=== PATIENT | male | born 1995 | race Caucasian/White ===

== ENCOUNTER → 2024-06-06 13:42 | Outpatient (CLI) | payer OTHER, SELFPAY ==
[2024-06-06 15:34] LABS: Add Manual Diff / Slide Review NO; Basophils Absolute Auto 100 /uL (0-100); Basophils Percent Auto 0.6 % (0-2); Eosinophils Absolute Auto 300 /uL (0-450); Eosinophils Percent Auto 2.7 % (2-4); Hematocrit 51.5 % (41-53); Hemoglobin 17.3 g/dL (13.5-17.5); Lymphocytes Absolute Auto 1900 /uL (1100-4500); Lymphocytes Percent Auto 19.3 % (25-40); Mean Corpuscular HGB Conc 33.5 % (30-36); Mean Corpuscular Hemoglobin 29.3 PG (26-34); Mean Corpuscular Volume 87.4 fL (80-100); Monocytes Absolute Auto 500 /uL (0-900); Monocytes Percent Auto 5.6 % (3-14); Neutrophils Absolute Auto 7000 /uL (1500-7000); Neutrophils Percent Auto 71.8 % (50-75); Platelet Count 443 X10^3/uL (150-400); Red Cell Distribution Width 14.1 % (11.6-14.8); White Blood Cell Count 9.7 X10^3/uL (4.5-11.0)
[2024-06-06 15:46] LABS: Erythrocyte Sedimentation Rate 1 MM/HR (0-15)
[2024-06-06 16:34] LABS: Alanine Aminotransferase 71 IU/L (<50); Albumin 4.2 g/dL (3.5-5.0); Albumin Globulin Ratio 1.4 (1.0-2.8); Alkaline Phosphatase 47 U/L (38-126); Aspartate Aminotransferase 77 IU/L (17-59); BUN Creatinine Ratio 5.6 (6-22); Bilirubin Total 1.5 mg/dL (0.2-1.3); Blood Urea Nitrogen 6 mg/dL (9-20); C-Reactive Protein Quant < 0.5 mg/dL (<1.0); Calcium 9.4 mg/dL (8.4-10.2); Carbon Dioxide 23 mmol/L (22-32); Chloride 102 mmol/L (98-107); Cholesterol 280 mg/dL (140-199); Estimated Glomerular Filt Rate > 60 mL/min (>60); Globulin 3.1 g/dL (1.7-4.1); Glucose 130 mg/dL (70-100); HDL Cholesterol 34 mg/dL (40-60); HEMOLYSIS < 15 (0-50); LDL Cholesterol Calculated 213 mg/dL (<100); Potassium 4.2 mmol/L (3.4-5.1); Sodium 135 mmol/L (137-145); Total Protein 7.3 g/dL (6.3-8.2); Triglycerides 167 mg/dL (35-150)
[2024-06-06 16:43] LABS: Urine N gonorrhoeae NOT DETECTED
[2024-06-06 16:59] LABS: Urine Chlamydia NOT DETECTED
[2024-06-06 17:44] LABS: TSH w/ Reflex to FT4 2.17 uIU/mL (0.47-4.68)
[2024-06-06 18:47] LABS: HIV 1 & 2 Ab/Ag 4th Gen Combo NEGATIVE (NEGATIVE); Hep C Virus Ab w/Reflex Quant REACTIVE s/c (NEGATIVE); Hepatitis B Surface Antigen NEGATIVE s/c (NEGATIVE)
[2024-06-08 05:36] LABS: Hepatitis B Core AB w/Reflex Negative (Negative)
== END ==
PROVIDERS: PCP Nurse Practitioner Family; Referring Provider Nurse Practitioner Family; Visit Provider Nurse Practitioner Family
DX: Z11.59 Encounter for screening for other viral diseases (principal); Z13.220 Encounter for screening for lipoid disorders; Z13.1 Encounter for screening for diabetes mellitus; F41.1 Generalized anxiety disorder; F32.A Depression, unspecified; Z11.3 Encounter for screening for infections with a predominantly sexual mode of transmission; L50.0 Allergic urticaria
CPT/HCPCS: 36415; 80053; 80061; 84443; 85025; 85651; 86140; 86592; 86704; 86706; 86803; 87340; 87389; 87491; 87522; 87591

== ENCOUNTER → 2024-09-09 07:13 | Outpatient (CLI) | payer OTHER, SELFPAY ==
--- NOTE | 2024-09-09 | DI.ECHO.S_ITS ---
[facility] : : [address] : : [place] : : [id number] : : Phone: [phone] Echocardiogram Report + + :Name: LINSEY HAGAN Study Date: 09/09/2024 Height: 68 in : :[facility] ReadingLocation: Weight: 215 lb : : Gender: Male BSA: 2.1 m2 : :: 1995 Age: 29 yrs BP: 166/100 mmHg: :Reason For Study: AKILA : :Ordering Physician: HANG SAEED Performed By: Pedro Main : :Referring: UNSPECIFIED : + + Interpretation Summary Hypertension. There is mild concentric left ventricular hypertrophy. The ejection fraction is estimated to be 50-55%. Diastolic parameters suggest probable normal left ventricular diastolic function and normal filling pressures. The right ventricle is normal in size and function. No significant valvular abnormalities. Pulmonary artery pressures cannot be estimated because of the lack of a measurable TR jet velocity but the IVC suggests a CVP of around 3 mmHg. Procedure: A two-dimensional transthoracic echocardiogram with color flow and Doppler was performed. The study quality was technically good. There is no prior echocardiogram noted for this patient. The patient was in normal sinus rhythm during the exam. Left Ventricle: The left ventricle is normal in size. There is mild concentric left ventricular hypertrophy. There is no ventricular septal defect visualized. The ejection fraction is estimated to be 50-55%. There are no focal wall motion abnormalities. Diastolic parameters suggest probable normal left ventricular diastolic function and normal filling pressures. Right Ventricle: The right ventricle is normal in size and function. Atria: The left atrial size is normal. Right atrial size is normal. There is no Doppler evidence for an interatrial shunt. Mitral Valve: The mitral valve leaflets appear mildly thickened, but open well. There is trace mitral regurgitation. Aortic Valve: The aortic valve is trileaflet. The aortic valve opens well. There is no aortic valve stenosis. No aortic regurgitation is present. Tricuspid Valve: The tricuspid valve leaflets are thin and pliable. No tricuspid regurgitation. Pulmonary artery pressures cannot be estimated because of the lack of a measurable TR jet velocity but the IVC suggests a CVP of around 3 mmHg. Pulmonic Valve: The pulmonic valve leaflets are thin and pliable; valve motion is normal. There is no pulmonic valvular regurgitation. Great Vessels: The aortic root is normal size. The dimensions of the ascending aorta are normal. The pulmonary artery is normal size. The IVC is of normal diameter and collapses greater than 50% with a sniff. This suggests a low right atrial pressure of 3 mm Hg. Pericardium/ Pleura There is no pericardial effusion. There is no pleural effusion. MMode/2D Measurements & Calculations LVIDd: 5.6 cm LVOT diam: 2.3 cm LVIDs: 4.0 cm Ao root diam: 3.3 cm FS: 29.4 % asc Aorta Diam: 3.4 cm EPSS: 0.66 cm Ao Arch Diam (Prox Trans): 1.6 cm IVSd: 1.1 cm LVPWd: 1.2 cm LV alaniz. diameter/BSA (cm/m^2): 2.7 LV sys. diameter/BSA (cm/m^2): 1.9 LA A2 area: 20.0 cm2 RA long axis: 4.5 cm LA A4 area: 17.9 cm2 RA area: 15.9 cm2 LA length (vol): 5.2 cm RA vol: 47.3 ml LA vol: 58.3 ml RA : 22.4 ml/m2 LA vol index: 27.7 ml/m2 IVC diam: 1.4 cm RVD1 (basal): 3.7 cm RVD2 (mid): 2.6 cm TAPSE: 1.9 cm Doppler Measurements & Calculations Ao V2 max: 127.3 cm/sec LVOT Max Jacob: 122.1 cm/sec Ao V2 mean: 96.7 cm/sec LV V1 max P.0 mmHg Ao max P.5 mmHg LV V1 VTI: 21.4 cm Ao mean P.0 mmHg TAVARES(I,D): 3.0 cm2 Ao V2 VTI: 28.4 cm TAVARES(V,D): 3.8 cm2 sev ratio: 0.75 TAVARES indexed to BSA (cm^2/m^2): 1.4 MV E max jacob: 68.5 cm/sec PA V2 max: 74.4 cm/sec MV A max jacob: 55.9 cm/sec PA V2 mean: 47.0 cm/sec MV E/A: 1.2 PA mean P.1 mmHg Med Peak E' Jacob: 7.3 cm/sec PA pr(Accel): 19.1 mmHg E/E' med: 9.4 Lat Peak E' Jacob: 7.1 cm/sec E/E' lat: 9.7 E/e' average: 9.6 MV dec time: 0.14 sec SVLVOT): 85.7 ml Reading Physician:08:35 AM
--- NOTE | 2024-09-09 08:11 | EKG_ITS ---
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
== END ==
PROVIDERS: PCP Nurse Practitioner Family; Referring Provider Nurse Practitioner Family; Visit Provider Nurse Practitioner Family
DX: G47.33 Obstructive sleep apnea (adult) (pediatric) (principal)
CPT/HCPCS: 93005; 93306

== ENCOUNTER → 2024-12-12 14:33 | Outpatient (CLI) | payer OTHER, SELFPAY ==
[2024-12-12 16:16] LABS: Alanine Aminotransferase 91 IU/L (<50); Albumin 4.7 g/dL (3.5-5.0); Albumin Globulin Ratio 1.3 (1.0-2.8); Alkaline Phosphatase 49 U/L (38-126); Aspartate Aminotransferase 106 IU/L (17-59); BUN Creatinine Ratio 12.2 (6-22); Bilirubin Total 1.7 mg/dL (0.2-1.3); Blood Urea Nitrogen 12 mg/dL (9-20); Calcium 10.1 mg/dL (8.4-10.2); Carbon Dioxide 25 mmol/L (22-32); Chloride 101 mmol/L (98-107); Cholesterol 240 mg/dL (140-199); Estimated Glomerular Filt Rate > 60 mL/min (>60); Globulin 3.7 g/dL (1.7-4.1); Glucose 99 mg/dL (70-100); HDL Cholesterol 54 mg/dL (40-60); HEMOLYSIS 50 (0-50); LDL Cholesterol Calculated 172 mg/dL (<100); Potassium 4.6 mmol/L (3.4-5.1); Sodium 138 mmol/L (137-145); Total Protein 8.4 g/dL (6.3-8.2); Triglycerides 71 mg/dL (35-150)
[2024-12-12 16:47] LABS: TSH w/ Reflex to FT4 4.31 uIU/mL (0.47-4.68)
== END ==
PROVIDERS: PCP Family Medicine; Referring Provider Family Medicine; Visit Provider Family Medicine
DX: R07.9 Chest pain, unspecified (principal); Z82.49 Family history of ischemic heart disease and other diseases of the circulatory system; E78.5 Hyperlipidemia, unspecified; I10 Essential (primary) hypertension; F19.90 Other psychoactive substance use, unspecified, uncomplicated
CPT/HCPCS: 80053; 80061; 80307; 84443

== ENCOUNTER 2025-04-09 20:31 | Emergency (ER) | payer OTHER, SELFPAY ==
[2025-04-09] VITALS (7 sets, daily range): BP systolic 120–145; BP diastolic 63–90; PULSE 96–124; RESP 12–22; TEMP 38.2; O2SAT 93–97; BMI 31.1
--- NOTE | 2025-04-09 20:52 | EKG_ITS ---
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
--- NOTE | 2025-04-09 20:56 | DI.CT.S_ITS ---
PROCEDURE: CT ABDOMEN PELVIS W CON INDICATIONS: fever TECHNIQUE: After the administration of intravenous contrast, axial sections acquired from the lung bases to the pubic symphysis. Coronal and sagittal reformats were performed. For radiation dose reduction, the following was used: automated exposure control, adjustment of mA and/or kV according to patient size. COMPARISON: [facility], CT, CT ANGIO CHEST PE PROTOCOL, 04/09/2025, 22:22. FINDINGS: Image quality: Diagnostic. Lower Chest: No significant findings. ABDOMEN: Liver: No solid mass. Liver measures 20.2 cm. Gallbladder: No radiopaque gallstones or wall thickening. Biliary ducts: No biliary dilation. Pancreas: No ductal dilation. Spleen: Spleen measures 14.5 cm. Adrenal Glands: No adrenal nodules. Kidneys and Ureters: No hydronephrosis. No solid mass. No complex renal cystic lesion which requires follow up. Stomach and Bowel: Normal colonic caliber, without significant wall thickening. Scattered diverticula inflammatory change. Peritoneum: No abnormal intraperitoneal fluid. No free air. Ventral Wall: Trace fat containing ventral hernia. Abdominal Nodes: No retroperitoneal or mesenteric adenopathy by size criteria. Vessels: Aorta and inferior vena cava are normal in size. PELVIS: Pelvic Organs: Unremarkable. Bladder: No bladder wall thickening, accounting for underdistention. Pelvic Nodes: No enlarged lymph nodes. Miscellaneous: No inguinal hernias are seen. Bones: No aggressive osseous abnormality. IMPRESSION: Diverticulosis. Hepatic steatosis. Dictated by: Rivka Churchill M.D. on 04/09/2025 at 22:51 Approved by: Rivka Churchill M.D. on 04/09/2025 at 22:53
[2025-04-09 21:26] LABS: Appearance Urine UA CLEAR; Bilirubin Urine UA 1+ (NEGATIVE); Color Urine UA YELLOW; Glucose Urine UA NEGATIVE (Negative); Ketones Urine UA TRACE (NEGATIVE); Leukocyte Esterase Urine UA NEGATIVE (NEGATIVE); Nitrite Urine UA NEGATIVE (Negative); Occult Blood Urine UA NEGATIVE (Negative); Protein Urine UA 1+ (Negative); Specific Gravity Urine UA 1.020 (1.000-1.035); Urobilinogen Urine UA 4.0 E.U./dL (0.2); pH Urine UA 7.5 (4.5-8.0)
[2025-04-09 21:31] LABS: INR 1.1 (0.9-1.3); Prothrombin Time 12.7 SECONDS (9.4-12.5)
[2025-04-09 21:32] LABS: Ur Specific Gravity Normal (Normal); Urine Tetrahydrocannabinol Negative (Negative)
[2025-04-09 21:33] LABS: UR Morphine/Opiate cutoff 300 Negative (Negative); Urine MDMA Negative (Negative); Urine Methamphetamines Negative (Negative); Urine Tricyclic Antidepressant Negative (Negative)
[2025-04-09 21:34] LABS: PTT Partial Thromboplastin Tim 35 SECONDS (25.1-36.5)
[2025-04-09] MEDS: SODIUM CHLORIDE 0.9% 2,789.58 ML 929.86 ML IV (21:36)
[2025-04-09 21:41] LABS: Ictotest Urine Negative (Negative)
[2025-04-09 21:42] LABS: Acetaminophen < 10 ug/mL (10-30); Ethanol (ETOH) < 10 mg/dL (<10); Lactate (Lactic Acid) 1.0 mmol/L (0.7-2.1); Salicylate < 1.0 mg/dL (<20)
[2025-04-09 21:42] LABS: Culture Indicated Urine Cult Not Indicated
[2025-04-09 21:43] LABS: Alanine Aminotransferase 54 IU/L (<50); Albumin 3.7 g/dL (3.5-5.0); Albumin Globulin Ratio 1.1 (1.0-2.8); Alkaline Phosphatase 70 U/L (38-126); Blood Urea Nitrogen 12 mg/dL (9-20); Calcium 8.5 mg/dL (8.4-10.2); Carbon Dioxide 26 mmol/L (22-32); Chloride 96 mmol/L (98-107); Estimated Glomerular Filt Rate > 60 mL/min (>60); Globulin 3.5 g/dL (1.7-4.1); Glucose 134 mg/dL (70-99); HEMOLYSIS 31 (0-50); Lipase 40 U/L (23-300); Potassium 4.0 mmol/L (3.4-5.1); Sodium 129 mmol/L (137-145); Total Protein 7.2 g/dL (6.3-8.2)
[2025-04-09 21:52] LABS: Hematocrit 55.9 % (41-53); Hemoglobin 18.8 g/dL (13.5-17.5); Mean Corpuscular HGB Conc 33.6 % (30-36); Mean Corpuscular Hemoglobin 28.6 PG (26-34); Mean Corpuscular Volume 85.1 fL (80-100); Platelet Count 170 X10^3/uL (150-400)
[2025-04-09 21:55] LABS: Add Manual Diff / Slide Review YES
[2025-04-09 21:59] LABS: Procalcitonin 0.347 ng/mL (<0.5)
[2025-04-09 22:02] LABS: Atypical Lymphocytes Percent 2.0 %; Band Neutrophils Percent 8.0 % (3-7); Basophils Percent Manual 1.0 % (0-1); Eosinophils Percent Manual 4.0 % (2-4); Lymphocytes Percent Manual 39.0 % (25-45); Monocytes Percent Manual 1.0 % (2-11); Neutrophils Absolute Manual 3816 /uL (3000-5900); RBC Morphology Normal Morphology; Segmented Neutrophils Percent 45.0 % (38-70); Total Cells Counted 100
[2025-04-09 22:13] LABS: Thyroid Stimulating Hormone 4.16 uIU/mL (0.47-4.68)
--- NOTE | 2025-04-09 22:17 | DI.CT.S_ITS ---
PROCEDURE: CT ANGIO CHEST PE PROTOCOL INDICATIONS: dimer TECHNIQUE: After the administration of intravenous contrast, 2 mm thick sections acquired from the pulmonary apices to the posterior costophrenic angles. 3-dimensional maximum intensity projection (MIP) coronal and sagittal reformats were then acquired through the thorax. For radiation dose reduction, the following was used: automated exposure control, adjustment of mA and/or kV according to patient size. COMPARISON: None. FINDINGS: Image quality: Diagnostic. Pulmonary arteries: Pulmonary arteries are normal in size, and demonstrate no intraluminal filling defects to suggest central pulmonary embolism. Lower Neck: No enlarged lymph nodes. Thyroid: No thyroid nodules which require sonographic follow up, per consensus guidelines. Axillae: No enlarged lymph nodes. Chest Wall: Unremarkable. Bones: Unremarkable. Lungs and Pleura: No pneumothorax or pleural effusions. No consolidation or suspicious nodules. Heart: Heart size is normal. No pericardial effusion. Thoracic Vessels: No aortic aneurysm. Mediastinum and Naomy: No enlarged lymph nodes. Esophagus: No wall thickening. Mild hiatal hernia. Upper Abdomen: Visualized upper abdomen solid organs and bowel loops appear normal. IMPRESSION: No pulmonary embolus. No acute cardiopulmonary process. Dictated by: Rivka Churchill M.D. on 04/09/2025 at 22:53 Approved by: Rivka Churchill M.D. on 04/09/2025 at 22:54
--- NOTE | 2025-04-09 22:17 | DI.US.S_ITS ---
PROCEDURE: US PERIPH VENOUS LOW EXTREM BI INDICATIONS: RO DVT TECHNIQUE: Real-time imaging, as well as color and pulse Doppler interrogation, were performed of the deep veins of both legs from the inguinal ligament to the popliteal fossa, with documentation of the visualized calf veins. COMPARISON: None. FINDINGS: Right: The common femoral, femoral, popliteal, and the visualized calf veins are normally compressible, and free of intraluminal thrombus. Color and pulse Doppler demonstrate normal phasic intravascular flow. There is normal augmentation response to distal compression maneuver. Left: The common femoral, femoral, popliteal, and the visualized calf veins are normally compressible, and free of intraluminal thrombus. Color and pulse Doppler demonstrate normal phasic intravascular flow. There is normal augmentation response to distal compression maneuver. IMPRESSION: No findings of deep venous thrombosis in either lower extremity. Dictated by: Rivka Churchill M.D. on 04/09/2025 at 23:43 Approved by: Rivka Churchill M.D. on 04/09/2025 at 23:43
[2025-04-10] VITALS: BP 131/65; PULSE 94; RESP 24; O2SAT 93
[2025-04-10 00:37] LABS: Troponin I < 0.012 ng/mL (0.01-0.034)
[2025-04-10 00:59] LABS: Troponin I < 0.012 ng/mL (0.01-0.034)
[2025-04-10 00:59] LABS: Coronavirus NL 63 Not Detected (Not Detect); SARS- CoV-2 Not Detected (Not Detecte)
[2025-04-10 01:15] VITALS: BP 125/72; PULSE 102; RESP 18; TEMP 38; O2SAT 96
[2025-04-10 01:26] VITALS: TEMP 38
[2025-04-10] MEDS: ACETAMINOPHEN 325 MG TABLET 975 MG PO (01:26)
[2025-04-10 02:16] VITALS: BP 138/66; PULSE 78; RESP 16; TEMP 37; O2SAT 99
--- NOTE | 2025-04-10 02:18 | PC.NURSE ---
Pt is now afebrile, would like to go home.
[2025-04-10 02:32] VITALS: TEMP 37
--- NOTE | 2025-04-10 07:16 | ED_ITS ---
HPI - Fever General Chief Complaint: Fever Stated Complaint: HBP, Fever, Chest pain, Brain Zaps Time Seen by Provider: 04/09/25 20:54 Source: patient Mode of arrival: Ambulatory History of Present Illness HPI Narrative: Pleasant 30-year-old man comes to the ER because of fever, and feeling brain zaps as he has recently changed his psychoactive medication on his own. He denies any cough, nausea, vomiting, abdominal pain, rash, neck pain, neck stiffness. Related Data Home Medications ?Medication ?Instructions ?Recorded ?Confirmed lisdexamfetamine 20 mg capsule 20 mg PO QAM 04/13/25 0 04/13/25 Previous Rx's ?Medication ?Instructions ?Recorded venlafaxine 75 mg tablet 75 mg PO TID #270 tabs 04/02 lisinopril 10 mg tablet 30 mg (3 x 10 mg) PO DAILY # 90 tabs 04/13/25 buprenorphine 8 mg-naloxone 2 mg 1 film buccal DAILY # 30 ea 05/15/25 sublingual film (Suboxone) Allergies Allergy/AdvReac Type Severity Reaction Status Date / Time No Known Drug Allergies Allergy Verified 04/13/25 16:13 Patient History Smoking Status: Current every day smoker Alcohol type: hard liquor Exam Initial Vital Signs Initial Vital Signs: Vital Signs Temperature 100.7 F H 04/09/25 20:43 Pulse Rate 124 H 04/09/25 20:43 Respiratory Rate 18 04/09/25 20:43 Blood Pressure 145/90 H 04/09/25 20:43 Pulse Oximetry 93 04/09/25 20:43 Oxygen Delivery Method Room Air 04/09/25 20:43 Const General: No acute distress, No in distress, ill appearing and No lethargic Nutritional Appearance: average body habitus [facility] Head: normal to inspection, normocephalic and atraumatic Ears: hearing grossly normal bilaterally Nose: external nose normal Face and sinus: normal facial exam Mouth: oral mucosae normal Throat: posterior oropharynx normal Eyes General: Yes appearance normal, both eyes and all related structures Periorbital: periorbital findings normal Conjunctivae: conjunctivae normal Pupils: PERRL EOM: EOM intact bilaterally Neck Neck: normal visual inspection, full ROM, no meningeal signs, No positive Brudzinski's sign and No positive Kernig's sign Chest Chest: normal inspection of the chest Resp Effort & Inspection: normal respiratory effort Auscultation: clear to auscultation bilaterally Cardio Palpation: normal PMI Rate: regular rate Rhythm: regular rhythm Heart Sounds: S1 normal and S2 normal GI Inspection: normal to inspection Palpation: soft and No tender Auscultation: normal bowel sounds General: No CVA tenderness Skin General: no rashes or lesions noted Neuro General: patient alert, patient awake, patient oriented x3, no meningeal signs, no focal motor deficits and CN's II-XI intact bilaterally Cognition: normal cognition Speech: speech normal Gait: normal gait Motor: muscle tone normal throughout Sensory Exam: no sensory deficits noted Course Course Course Narrative: fever responded to tylenol neg procal/lactate neg imaging, no source identified vitals normalized no hx of etoH withdrawal sz Orders Ordered: Discontinued Medications Acetaminophen (Acetaminophen 325 Mg Tablet) 975 mg PO NOW ONE Stop: 04/10/25 01:22 Last Admin: 04/10/25 01:26 Dose: 975 mg Documented By: Diazepam (Diazepam 10 Mg/2 Ml Syringe) 10 mg IV NOW ONE Stop: 04/09/25 20:57 Last Admin: 04/09/25 22:38 Dose: Not Given Documented By: MAYA Sodium Chloride (Normal Saline 0.9%) 1,000 mls @ 1,000 mls/hr IV BOLUS ONE Stop: 04/09/25 21:51 Last Admin: 04/09/25 21:53 Dose: Not Given Documented By: MAYA Sodium Chloride (Normal Saline 0.9%) 2,789.58 mls @ 929.86 mls/hr 30 ml/kg infuse over 3 hr (2789.58 ml) IV NOW ONE Stop: 04/09/25 23:53 Last Infusion: 04/10/25 01:19 Dose: Infused Documented By: Infusion: 04/09/25 22:39 Dose: 929.86 mls/hr Documented By: Infusion: 04/09/25 22:38 Dose: 0 mls/hr Documented By: Admin: 04/09/25 21:36 Dose: 929.86 mls/hr Documented By: MAYA Ondansetron HCl (Ondansetron 4 Mg/2 Ml Inj) 4 mg IV NOW PRN PRN Reason: Nausea And Vomiting Ondansetron HCl (Ondansetron 4 Mg Odt) 4 mg PO NOW PRN PRN Reason: Nausea And Vomiting Vital Signs Vital signs: Vital Signs - 8 hr 04/09/25 23:30 04/09/25 23:31 04/09/25 23:31 Temperature Pulse Rate 98 H 96 H Respiratory Rate 14 16 Blood Pressure 120/63 Pulse Oximetry 96 96 Oxygen Delivery Method Room Air 04/10/25 00:00 04/10/25 00:00 04/10/25 01:15 Temperature 100.4 F H Pulse Rate 94 H 102 H Respiratory Rate 24 18 Blood Pressure 131/65 125/72 Pulse Oximetry 93 96 Oxygen Delivery Method Room Air Room Air 04/10/25 01:26 04/10/25 02:16 04/10/25 02:32 Temperature 100.4 F H 98.6 F 98.6 F Pulse Rate 78 Respiratory Rate 16 Blood Pressure 138/66 Pulse Oximetry 99 Oxygen Delivery Method Room Air MDM - Fever Differential Diagnosis Differential diagnosis: Likely cellulitis, fever of unknown origin, gastroenteritis, community acquired pneumonia, pyelonephritis, viral infection, sepsis and influenza Lab Data 04/09/25 21:10 04/09/25 21:10 Labs: Lab Results 04/09/25 04/09/25 04/09/25 Range/Units 21:07 21:07 21:10 WBC 7.2 (4.5-11.0) X10^3/uL RBC 6.56 H (4.5-5.9) X10^6/uL Hgb 18.8 H (13.5-17.5) g/dL Hct 55.9 H (41-53) % MCV 85.1 (80-100) fL MCH 28.6 (26-34) PG MCHC 33.6 (30-36) % RDW 15.8 H (11.6-14.8) % Plt Count 170 (150-400) X10^3/uL Neut % (Auto) Not Reportable Lymph % (Auto) Not Reportable [place] % (Auto) Not Reportable Eos % (Auto) Not Reportable Baso % (Auto) Not Reportable Lymph # (Auto) Not Reportable [place] # (Auto) Not Reportable Baso # (Auto) Not Reportable Total Counted 100 Seg Neutrophils % 45.0 (38-70) % Band Neutrophils % 8.0 H (3-7) % Lymphocytes % (Manual) 39.0 (25-45) % Atypical Lymphs % 2.0 H ( - 0) % Monocytes % (Manual) 1.0 L (2-11) % Eosinophils % (Manual) 4.0 (2-4) % Basophils % (Manual) 1.0 (0-1) % Neutrophils # (Manual) 3816 (5469-7013) /uL Reactive Lymphocytes 2+ H RBC Morphology Normal morphology PT 12.7 H (9.4-12.5) SECONDS INR 1.1 (0.9-1.3) APTT 35 (25.1-36.5) SECONDS D-Dimer 3286 H (<500) ng/ml Sodium 129 L (137-145) mmol/L Potassium 4.0 (3.4-5.1) mmol/L Chloride 96 L (98-107) mmol/L Carbon Dioxide 26 (22-32) mmol/L BUN 12 (9-20) mg/dL Creatinine 0.87 (0.66-1.25) mg/dL Estimated GFR > 60 (>60) mL/min BUN/Creatinine Ratio 13.8 (6-22) Glucose 134 H (70-99) mg/dL Lactate 1.0 (0.7-2.1) mmol/L Calcium 8.5 (8.4-10.2) mg/dL Total Bilirubin 1.0 (0.2-1.3) mg/dL AST 59 (17-59) IU/L ALT 54 H (<50) IU/L Alkaline Phosphatase 70 (38-126) U/L Troponin I < 0.012 (0.01-0.034) ng/mL Total Protein 7.2 (6.3-8.2) g/dL Albumin 3.7 (3.5-5.0) g/dL Globulin 3.5 (1.7-4.1) g/dL Albumin/Globulin Ratio 1.1 (1.0-2.8) Lipase 40 (23-300) U/L Procalcitonin 0.347 (<0.5) ng/mL TSH 4.16 (0.47-4.68) uIU/mL Urine Color Yellow Urine Appearance Clear Urine pH 7.5 Normal (4.5-8.0) Ur Specific [place] 1.020 (1.000-1.035) Urine Protein 1+ H (Negative) Urine Glucose (UA) Negative (Negative) g/dL Urine Ketones Trace H (NEGATIVE) Urine Occult Blood Negative (Negative) Urine Nitrate Negative (Negative) Urine Bilirubin 1+ H (NEGATIVE) Ur Bilirubin Confirm Negative (Negative) Urine Urobilinogen 4.0 H (0.2) E.U./dL Ur Leukocyte Esterase Negative (NEGATIVE) Urine RBC 1-5/hpf (0-5/HPF) Urine WBC None seen (0-5/HPF) Ur Squamous Epith Cells 1-5 /hpf (0-5/HPF) Amorphous Sediment 1+ Urine Bacteria Occasional (0-1) (None) Urine Mucus 1+ H (Negative) Ur Culture Indicated? Cult not indicated Vol Urine Centrifuged 10ml (spun) Salicylates < 1.0 (<20) mg/dL U Opiates 300ng/mL cut Negative (Negative) Ur Oxycodone Screen Negative (Negative) Urine Methadone Screen Negative (Negative) Acetaminophen < 10 (10-30) ug/mL Ur Barbiturates Screen Negative (Negative) U Tricyclic Antidepress Negative (Negative) Ur Phencyclidine Scrn Negative (Negative) Ur Amphetamines Screen Positive H (Negative) U Methamphetamines Scrn Negative (Negative) Ur MDMA Scrn (Ecstasy) Negative (Negative) U Benzodiazepines Scrn Negative (Negative) Urine Cocaine Screen Negative (Negative) U Marijuana (THC) Screen Negative (Negative) Urine Specific [place] Normal (Normal) Ethyl Alcohol < 10 (<10) mg/dL Ur Creatinine Normal (Normal) Chlamy pneumoniae PCR (Not Detect) Adenovirus (PCR) (Not Detect) B. pertussis DNA (PCR) (Not Detect) B.parapertussis DNA PCR (Not Detecte) Coronavirus OC43 (PCR) (Not Detect) Coronavirus HKU1 (PCR) (Not Detect) Coronavirus 229E (PCR) (Not Detect) SARS-CoV-2 (PCR) (Not Detecte) Coronavirus NL63 (PCR) (Not Detect) Human Metapneumovir PCR (Not Detect) Influenza Type A (PCR) (Not Detect) Influenza Type B (PCR) (Not Detect) M. pneumoniae (PCR) (Not Detect) Parainfluenza 1 (PCR) (Not Detect) Parainfluenza 2 (PCR) (Not Detect) Parainfluenza 3 (PCR) (Not Detect) Parainfluenza 4 (PCR) (Not Detect) RSV (PCR) (Not Detect) Entero/Rhino (PCR) (Not Detect) 04/09/25 04/10/25 Range/Units 23:52 00:15 WBC (4.5-11.0) X10^3/uL RBC (4.5-5.9) X10^6/uL Hgb (13.5-17.5) g/dL Hct (41-53) % MCV (80-100) fL MCH (26-34) PG MCHC (30-36) % RDW (11.6-14.8) % Plt Count (150-400) X10^3/uL Neut % (Auto) Lymph % (Auto) [place] % (Auto) Eos % (Auto) Baso % (Auto) Lymph # (Auto) [place] # (Auto) Baso # (Auto) Total Counted Seg Neutrophils % (38-70) % Band Neutrophils % (3-7) % Lymphocytes % (Manual) (25-45) % Atypical Lymphs % ( - 0) % Monocytes % (Manual) (2-11) % Eosinophils % (Manual) (2-4) % Basophils % (Manual) (0-1) % Neutrophils # (Manual) (8800-1589) /uL Reactive Lymphocytes RBC Morphology PT (9.4-12.5) SECONDS INR (0.9-1.3) APTT (25.1-36.5) SECONDS D-Dimer (<500) ng/ml Sodium (137-145) mmol/L Potassium (3.4-5.1) mmol/L Chloride (98-107) mmol/L Carbon Dioxide (22-32) mmol/L BUN (9-20) mg/dL Creatinine (0.66-1.25) mg/dL Estimated GFR (>60) mL/min BUN/Creatinine Ratio (6-22) Glucose (70-99) mg/dL Lactate (0.7-2.1) mmol/L Calcium (8.4-10.2) mg/dL Total Bilirubin (0.2-1.3) mg/dL AST (17-59) IU/L ALT (<50) IU/L Alkaline Phosphatase (38-126) U/L Troponin I < 0.012 (0.01-0.034) ng/mL Total Protein (6.3-8.2) g/dL Albumin (3.5-5.0) g/dL Globulin (1.7-4.1) g/dL Albumin/Globulin Ratio (1.0-2.8) Lipase (23-300) U/L Procalcitonin (<0.5) ng/mL TSH (0.47-4.68) uIU/mL Urine Color Urine Appearance Urine pH (4.5-8.0) Ur Specific [place] (1.000-1.035) Urine Protein (Negative) Urine Glucose (UA) (Negative) g/dL Urine Ketones (NEGATIVE) Urine Occult Blood (Negative) Urine Nitrate (Negative) Urine Bilirubin (NEGATIVE) Ur Bilirubin Confirm (Negative) Urine Urobilinogen (0.2) E.U./dL Ur Leukocyte Esterase (NEGATIVE) Urine RBC (0-5/HPF) Urine WBC (0-5/HPF) Ur Squamous Epith Cells (0-5/HPF) Amorphous Sediment Urine Bacteria (None) Urine Mucus (Negative) Ur Culture Indicated? Vol Urine Centrifuged Salicylates (<20) mg/dL U Opiates 300ng/mL cut (Negative) Ur Oxycodone Screen (Negative) Urine Methadone Screen (Negative) Acetaminophen (10-30) ug/mL Ur Barbiturates Screen (Negative) U Tricyclic Antidepress (Negative) Ur Phencyclidine Scrn (Negative) Ur Amphetamines Screen (Negative) U Methamphetamines Scrn (Negative) Ur MDMA Scrn (Ecstasy) (Negative) U Benzodiazepines Scrn (Negative) Urine Cocaine Screen (Negative) U Marijuana (THC) Screen (Negative) Urine Specific [place] (Normal) Ethyl Alcohol (<10) mg/dL Ur Creatinine (Normal) Chlamy pneumoniae PCR Not detected (Not Detect) Adenovirus (PCR) Not detected (Not Detect) B. pertussis DNA (PCR) Not detected (Not Detect) B.parapertussis DNA PCR Not detected (Not Detecte) Coronavirus OC43 (PCR) Not detected (Not Detect) Coronavirus HKU1 (PCR) Not detected (Not Detect) Coronavirus 229E (PCR) Not detected (Not Detect) SARS-CoV-2 (PCR) Not detected (Not Detecte) Coronavirus NL63 (PCR) Not detected (Not Detect) Human Metapneumovir PCR Not detected (Not Detect) Influenza Type A (PCR) Not detected (Not Detect) Influenza Type B (PCR) Not detected (Not Detect) M. pneumoniae (PCR) Not detected (Not Detect) Parainfluenza 1 (PCR) Not detected (Not Detect) Parainfluenza 2 (PCR) Not detected (Not Detect) Parainfluenza 3 (PCR) Not detected (Not Detect) Parainfluenza 4 (PCR) Not detected (Not Detect) RSV (PCR) Not detected (Not Detect) Entero/Rhino (PCR) Not detected (Not Detect) Urine Dip Bedside Urine Glucose Negative Bedside Urine Bilirubin + 1 Bedside Urine Ketone +/- 5 Urine Specific [place] 1.015 Bedside Urine Occult Blood - Negative Bedside Urine pH 7.0 Bedside Urine Protein + 30 Bedside Urine Urobilinogen 1+ 2mg Bedside Urine Nitrite - Negative Bedside Urine Leukocytes - Negative Esterase ECG Data Interpretation: Sinus tachycardia. Rate 124. Otherwise normal EKG. MDM Narrative Medical decision making narrative: Patient seen and examined by myself. He did have a mild fever of unknown origin. Thorough workup was done in the ER and no source was found. Also his procalcitonin was within normal limits so he was not started on any antibiotics at this time. I advised him to return to the hospital if his symptoms became worse or persistent. Otherwise, I advised him to follow up with his PCP as soon as possible. He was in agreement with this plan. Discharge Plan Departure Patient Disposition: Home Clinical Impression: Fever of unknown origin Instructions: DI for Fever (Symptom) -- Adult Activity Restrictions/Additional Instructions: If you continue to have fevers tomorrow or if you start to have chest pain again then please return to the ER immediately for further evaluation. Please return to the ER as well if there is any other concerns or change or worsening in your condition. Otherwise, please follow up with your primary care provider as soon as possible. Prescriptions: No Action lisdexamfetamine 20 mg capsule 20 mg PO QAM lisinopril 10 mg tablet 30 mg PO DAILY Qty: 90 2RF venlafaxine 75 mg tablet 75 mg PO TID Qty: 270 0RF Rx Instructions: [employer] buprenorphine-naloxone [Suboxone] 8-2 mg film 1 film buccal DAILY Qty: 30 0RF Referrals: Sandra Díaz MD [Primary Care Provider, Family Practice] - As soon as possible Stand Alone Forms: Patient Portal/API
== END 2025-04-10 02:42 | disposition home or self-care (01) ==
PROVIDERS: Emergency Provider Emergency Medicine; PCP Family Medicine
DX: R50.9 Fever, unspecified (principal); R07.9 Chest pain, unspecified
CPT/HCPCS: 36415; 71275; 74177; 80053; 80305; 80320; 80329; 81001; 81003; 83605; 83690; 84145; 84443; 84484; 85007; 85025; 85379; 85610; 85730; 87040; 87633; 93005; 93970; 96360; 96361; 99284; G0480; J3360; Q9967

== ENCOUNTER 2025-08-25 22:52 | Emergency (ER) | payer OTHER, SELFPAY ==
[2025-08-25 22:59] VITALS: BP 145/91; PULSE 92; RESP 18; TEMP 36.6; O2SAT 96; BMI 30.4
--- NOTE | 2025-08-25 23:04 | DI.RAD.S_ITS ---
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 COMPARISON: None. FINDINGS: Bones: No fractures or dislocations. Carpal bones are normally aligned. No suspicious bony lesions. Soft tissues: Soft tissue laceration between the thumb and index finger. No radiopaque foreign body. IMPRESSION: Soft tissue laceration between the thumb and index finger. No radiopaque foreign body. No acute bony abnormality. Dictated by: Tracy Edwards M.D. on 08/26/2025 at 0:11 Approved by: Tracy Edwards M.D. on 08/26/2025 at 0:12
--- NOTE | 2025-08-25 23:05 | ED_ITS ---
HPI - Extremity Injury (Upper) General Chief Complaint: Wound/Laceration Stated Complaint: lt hand injury ~1 inch with screwdriver Time Seen by Provider: 08/25/25 22:59 History of Present Illness HPI narrative: Patient 30-year-old male history of hypertension, substance use disorder on S uboxone, ADHD presenting today with left hand injury. He reports that he had a screwdriver he is trying to prior off something from the vacuum when it slipped and went down by his some. She had otr van cdl truck driver's out. He reports it being sore but has full range of motion. No excessive bleeding. He is not sure when his last tetanus was. Related Data Previous Rx's ?Medication ?Instructions ?Recorded buprenorphine 8 mg-naloxone 2 mg 1 film buccal DAILY # 30 ea 07/28/25 sublingual film (Suboxone) lisdexamfetamine 30 mg capsule 30 mg PO DAILY #30 caps 08/11/25 (Vyvanse) lisinopril 40 mg tablet 40 mg PO DAILY #90 tabs 07/25 05/18 venlafaxine 75 mg capsule,extended 75 mg PO BID #180 c aps 08/14/25 release 24 hr cephalexin 500 mg capsule 500 mg PO TID #21 caps 08/26 Allergies Allergy/AdvReac Type Severity Reaction Status Date / Time No Known Drug Allergies Allergy Verified 04/13/25 16:13 Patient History Social History Smoking Status: Current some day smoker Alcohol type: hard liquor Exam Initial Vital Signs Initial Vital Signs: Vital Signs Temperature 97.9 F 08/25/25 22:59 Pulse Rate 92 H 08/25/25 22:59 Respiratory Rate 18 08/25/25 22:59 Blood Pressure 145/91 H 08/25/25 22:59 Pulse Oximetry 96 08/25/25 22:59 Oxygen Delivery Method Room Air 08/25/25 22:59 GENERAL: Well-appearing, well-nourished and in no acute distress. CARDIOVASCULAR: peripheral pulses in tact, cap refill <2 sec RESPIRATORY: No respiratory distress, speaks in full sentences without difficulty EXTREMITIES: Normal range of motion, no clubbing or edema. Neurovascularly intact Left hand puncture wound noted between some and index finger he has full range of motion able to make an okay sign with some in pinky able to flex and extend thumb he is slightly tender in his thenar eminence. Bleeding controlled., cap refill less than 2 seconds puncture wound is less than 0.5 cm NEUROLOGICAL: Cranial nerves II through XII grossly intact. Normal gait and speech. SKIN: Warm, dry, no petechiae, no rashes or lesions. Course Orders Ordered: ED Orders 08/25/25 23:04 XR hand LT min 3V Stat Discontinued Medications Diphtheria/Tetanus/Acell Pertussis (Tet,Diph,Pertuss(Acell),Vac/Pf 0.5 Ml Syringe) 0.5 ml IM .ONCE ONE Stop: 08/25/25 23:05 Last Admin: 08/25/25 23:10 Dose: 0.5 ml Documented By: FREDY Ibuprofen (Ibuprofen 400 Mg Tablet) 400 mg PO NOW ONE Stop: 08/26/25 00:22 Last Admin: 08/26/25 00:26 Dose: 400 mg Documented By: SUBHASH Vital Signs Vital signs: Vital Signs - 8 hr 08/25/25 22:59 08/26/25 00:33 Temperature 97.9 F Pulse Rate 92 H 90 Respiratory Rate 18 17 Blood Pressure 145/91 H 137/75 Pulse Oximetry 96 96 Oxygen Delivery Method Room Air Room Air MDM - Extremity Injury (Upper) Imaging Data Extremity x-ray #1: Radiologist's Impression: PROCEDURE: XR HAND LT MIN 3V INDICATIONS: screw 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 COMPARISON: None. FINDINGS: Bones: No fractures or dislocations. Carpal bones are normally aligned. No suspicious bony lesions. Soft tissues: Soft tissue laceration between the thumb and index finger. No radiopaque foreign body. IMPRESSION: Soft tissue laceration between the thumb and index finger. No radiopaque foreign body. No acute bony abnormality. Dictated by: Tracy Edwards M.D. on 08/26/2025 at 0:11 MDM Narrative Medical decision making narrative: Patient healthy 30-year-old male presents today with left hand injury. Reports a screwdriver done down into his hand. X-ray was negative for foreign body but there is some air. Small puncture wound. Tetanus is now updated. Shcrew otr van cdl truck driver it does appear clean however prescription sent. Patient given instructions on went to start antibiotics and when to return to the ED. Verbal understanding. At this time no definite injury to vessel or nerve. He has full range of motion cap refills less than 2 seconds. No suturing required. Discharge Plan Departure Patient Disposition: Home Clinical Impression: Puncture wound Instructions: DI for Puncture Wound Activity Restrictions/Additional Instructions: *You have been diagnosed with puncture wound *What to do: At this time keep hand clean and dry with soap and water *Continue to take medications as directed Keflex 500 mg 3 times a day for 7 days only if needed for redness swelling and fever Tylenol Motrin as needed for pain *Follow up with your primary care provider in 2-3 days or call [phone] *Return to ER if you should have worsening redness swelling fever [or] any new, worsening or concerning symptoms Prescriptions: New cephalexin 500 mg capsule 500 mg PO TID Qty: 21 0RF No Action lisdexamfetamine [Vyvanse] 30 mg capsule 30 mg PO DAILY Qty: 30 0RF lisinopril 40 mg tablet 40 mg PO DAILY Qty: 90 2RF buprenorphine-naloxone [Suboxone] 8-2 mg film 1 film buccal DAILY Qty: 30 0RF Rx Instructions: No refills until seen in office venlafaxine 75 mg capsule,extended release 24hr 75 mg PO BID Qty: 180 2RF Rx Instructions: [employer] Referrals: Sandra Díaz MD [Primary Care Provider, Family Practice] Stand Alone Forms: Patient Portal/API
[2025-08-25] MEDS: TET,DIPH,PERTUSS(ACELL),VAC/PF 0.5 ML SYRINGE IM (23:10)
[2025-08-26] MEDS: IBUPROFEN 400 MG TABLET PO (00:26)
[2025-08-26 00:33] VITALS: BP 137/75; PULSE 90; RESP 17; O2SAT 96
== END 2025-08-26 00:35 | disposition home or self-care (01) ==
PROVIDERS: Emergency Provider Emergency Medicine; PCP Family Medicine
DX: S61.432A Puncture wound without foreign body of left hand, initial encounter (principal); W27.0XXA Contact with workbench tool, initial encounter; Z23 Encounter for immunization
CPT/HCPCS: 73130; 90471; 99283; 90715